=== PATIENT | female | born 1980 | race Two or more races ===

== ENCOUNTER 2017-03-11 16:09 | Emergency (ER) | payer MEDICAID ==
[~2017-03-11] VITALS: Ht 157.5 cm; Wt 81.6 kg
[2017-03-11 17:21] LABS: Basophils # (auto) 0 uL; Basophils % (auto) 0.5 % (0.0-2.0); DEFINITIVE VIEW TRANSMISSION; Eosinophils # (auto) 0.2 uL; Eosinophils % (auto) 3.1 % (0.0-7.0); Hematocrit 32.8 % (36.0-46.0); Hemoglobin 10.9 g/dL (12.2-16.2); Lymphocytes # (auto) 1.8 uL; Mean Corpuscular Hemoglobin 26.4 pg (28.0-32.0); Mean Corpuscular Hgb Conc. 33.4 g/dL (32.0-36.0); Mean Corpuscular Volume 79.1 fL (80.0-100.0); Mean Platelet Volume 8.8 fL (7.4-10.4); Monocytes # (auto) 0.6 uL; Monocytes % (auto) 7.9 % (0.0-12.0); Neutrophils % (auto) 65.5 % (37.0-80.0); Platelet Count (auto) 313 10^3/uL (140-450); Red Cell Distribution Width 14.9 % (11.6-16.0); White Blood Cell 7.7 10^3/uL (4.4-10.8)
[2017-03-11 17:40] LABS: Urine Bilirubin Negative (Negative); Urine Blood 2+ /uL (Negative); Urine Color Yellow (Yellow); Urine Glucose Normal (Normal); Urine Ketone Negative (Negative); Urine Mucus FEW (None Seen); Urine Nitrite Negative (Negative); Urine RBC 204 /hpf (0 - 4); Urine Squamous Epithelial Cell FEW /hpf (<5); Urine Urobilinogen Normal (Negative)
[2017-03-11 17:54] LABS: Albumin 3.5 g/dL (3.4-5.0); BUN/Creatinine Ratio 20.5; Bilirubin, Total 0.3 mg/dL (0.2-1.0); Calcium 8.4 mg/dL (8.5-10.1); Potassium 3.9 mmol/L (3.5-5.1)
[2017-03-11 18:45] VITALS: BP 103/73
== END 2017-03-11 20:35 | disposition home or self-care (01) ==
LOC: ER 16:09
DX: O20.8 Other hemorrhage in early pregnancy (principal); Z3A.01 Less than 8 weeks gestation of pregnancy
CPT/HCPCS: 36415; 76801; 80053; 81001; 84702; 85025; 86901

== ENCOUNTER 2018-05-07 21:15 | Emergency (ER) | payer MEDICAID ==
[~2018-05-07] VITALS: Ht 157.5 cm; Wt 85.7 kg
[2018-05-07 21:59] LABS: Basophils # (auto) 0.1 uL; Basophils % (auto) 0.5 % (0.0-2.0); Hemoglobin 8.3 g/dL (12.2-16.2); Lymphocytes # (auto) 1.7 uL
[2018-05-07 22:01] LABS: Eosinophils # (auto) 0.2 uL; Eosinophils % (auto) 2.2 % (0.0-7.0); Hematocrit 25.1 % (36.0-46.0); Lymphocytes % (auto) 15.7 % (10.0-50.0); Mean Corpuscular Hemoglobin 25.7 pg (28.0-32.0); Mean Corpuscular Hgb Conc. 33.1 g/dL (32.0-36.0); Mean Corpuscular Volume 77.7 fL (80.0-100.0); Monocytes # (auto) 0.8 uL; Monocytes % (auto) 7.2 % (0.0-12.0); Neutrophils # (auto) 8.3 uL; Neutrophils % (auto) 74.4 % (37.0-80.0); Platelet Count (auto) 223 10^3/uL (140-450); Red Blood Cells 3.23 10^6/uL (4.0-5.20); White Blood Cell 11.1 10^3/uL (4.4-10.8)
[2018-05-07 22:07] LABS: Red Cell Distribution Width 20.2 % (11.8-14.3)
[2018-05-08] MEDS ORDERED: SODIUM CHLORIDE 0.9% 1,000 ML IV ONE (07:00)
[2018-05-08 07:31] VITALS: BP 94/63
[2018-05-08 09:02] LABS: Urine Bacteria NONE SEEN /hpf (None Seen); Urine Blood 3+ /uL (Negative); Urine Specific Gravity 1.012 (1.001-1.035); Urine WBC 419 /hpf (0 - 5); Urine WBC Clumps PRESENT /hpf (None Seen)
== END 2018-05-08 09:01 | disposition home or self-care (01) ==
LOC: ER 21:15
DX: O46.91 Antepartum hemorrhage, unspecified, first trimester (principal); O23.41 Unspecified infection of urinary tract in pregnancy, first trimester; Z3A.01 Less than 8 weeks gestation of pregnancy
CPT/HCPCS: 36415; 76801; 76817; 81001; 81002; 84702; 85025; 88305; 99285; J7030

== ENCOUNTER 2020-04-01 14:56 | Emergency (ER) | payer MEDICAID ==
[~2020-04-01] VITALS: Ht 157.5 cm; Wt 90.7 kg
[2020-04-01 15:39] LABS: Basophils # (auto) 0.1 10 ^3/uL (0-0.2); Lymphocytes # (auto) 1.3 10 ^3/uL (0.4-5.4); Monocytes # (auto) 0.4 10 ^3/uL (0-1.3)
[2020-04-01 15:40] LABS: Basophils % (auto) 1.1 % (0.0-2.0); Eosinophils # (auto) 0.2 10 ^3/uL (0-0.8); Eosinophils % (auto) 3.5 % (0.0-7.0); Hematocrit 35.2 % (36.0-46.0); Hemoglobin 10.9 g/dL (12.2-16.2); Lymphocytes % (auto) 26.5 % (10.0-50.0); Mean Corpuscular Hemoglobin 23.6 pg (28.0-32.0); Mean Corpuscular Volume 76.2 fL (80.0-100.0); Monocytes % (auto) 8.3 % (0.0-12.0); Neutrophils % (auto) 60.6 % (37.0-80.0); Platelet Count (auto) 318 10^3/uL (140-450); Red Blood Cells 4.63 10^6/uL (4.0-5.20); Red Cell Distribution Width 18.1 % (11.8-14.3); White Blood Cell 4.9 10^3/uL (4.4-10.8)
[2020-04-01 15:52] LABS: Albumin 3.8 g/dL (3.4-5.0); Anion Gap 5 (5-15); Blood Urea Nitrogen 12 mg/dL (7-18); Carbon Dioxide 25 mmol/L (21-32); Chloride 108 mmol/L (98-107); Glucose 113 mg/dL (74-106); Potassium 4.1 mmol/L (3.5-5.1); Sodium 138 mmol/L (136-145)
[2020-04-01 15:58] LABS: Alanine Aminotransferase 26 U/L (13-56); Alkaline Phosphatase 43 U/L (45-117); Aspartate Aminotransferase 12 U/L (15-37); BUN/Creatinine Ratio 15.8; Bilirubin, Total 0.3 mg/dL (0.2-1.0); GFR African American 110 mL/min; GFR Non-African American 91 mL/min; Total Protein 7.1 g/dL (6.4-8.2)
[2020-04-01 17:00] VITALS: BP 110/68
== END 2020-04-01 17:01 | disposition home or self-care (01) ==
LOC: ER 14:56
DX: D50.9 Iron deficiency anemia, unspecified (principal); R00.2 Palpitations
CPT/HCPCS: 36415; 80053; 84484; 85025; 93005

== ENCOUNTER 2020-08-19 22:27 | Emergency (ER) | payer MEDICAID ==
[~2020-08-19] VITALS: Ht 162.6 cm; Wt 93.0 kg
[2020-08-19 23:54] VITALS: BP 112/63
== END 2020-08-20 00:32 | disposition home or self-care (01) ==
LOC: ER 22:31
DX: S09.90XA Unspecified injury of head, initial encounter (principal); S06.0X0A Concussion without loss of consciousness, initial encounter; X58.XXXA Exposure to other specified factors, initial encounter; Y93.89 Activity, other specified; Y92.89 Other specified places as the place of occurrence of the external cause; Y99.8 Other external cause status
CPT/HCPCS: 70450

== ENCOUNTER → 2021-07-26 12:55 | Emergency (ER) | payer MEDICAID ==
[~2021-07-26] VITALS: Ht 157.5 cm; Wt 88.5 kg
[2021-07-26 13:37] LABS: Urine Bacteria NONE SEEN /hpf (None Seen); Urine Blood 3+ /uL (Negative); Urine Mucus MANY (None Seen); Urine Specific Gravity 1.029 (1.001-1.035); Urine WBC 118 /hpf (0 - 5)
[2021-07-26 13:54] LABS: Eosinophils # (auto) 0.1 10 ^3/uL (0-0.8); Hematocrit 31.9 % (36.0-46.0); Hemoglobin 9.7 g/dL (12.2-16.2); Lymphocytes % (auto) 13.9 % (10.0-50.0); Monocytes # (auto) 0.5 10 ^3/uL (0-1.3); Monocytes % (auto) 7.4 % (0.0-12.0); Neutrophils # (auto) 5.6 10 ^3/uL (1.6-8.6)
[2021-07-26 13:56] LABS: Basophils # (auto) 0 10 ^3/uL (0-0.2); Basophils % (auto) 0.7 % (0.0-2.0); Eosinophils % (auto) 1.2 % (0.0-7.0); Mean Corpuscular Hgb Conc. 30.5 g/dL (32.0-36.0); Mean Corpuscular Volume 68.8 fL (80.0-100.0); Neutrophils % (auto) 76.8 % (37.0-80.0); Red Blood Cells 4.63 10^6/uL (4.0-5.20); White Blood Cell 7.2 10^3/uL (4.4-10.8)
[2021-07-26 14:15] LABS: Albumin 3.7 g/dL (3.4-5.0); Calcium 8.9 mg/dL (8.5-10.1)
[2021-07-26 14:20] LABS: BUN/Creatinine Ratio 16.3; Bilirubin, Total 0.3 mg/dL (0.2-1.0); Total Protein 7.5 g/dL (6.4-8.2)
[2021-07-26 21:26] VITALS: BP 130/67
== END | disposition home or self-care (01) ==
LOC: ER 12:55
DX: N93.9 Abnormal uterine and vaginal bleeding, unspecified (principal); N39.0 Urinary tract infection, site not specified; Z86.2 Personal history of diseases of the blood and blood-forming organs and certain disorders involving the immune mechanism
CPT/HCPCS: 36415; 80053; 81001; 84702; 85025

== ENCOUNTER 2023-01-25 15:58 | Emergency (ER) | payer MEDICAID ==
[~2023-01-25] VITALS: Ht 157.5 cm; Wt 98.4 kg
[2023-01-25 16:23] LABS: Eosinophils # (auto) 0.2 10 ^3/uL (0-0.8); Monocytes # (auto) 0.5 10 ^3/uL (0-1.3); Monocytes % (auto) 7.9 % (0.0-12.0); Neutrophils # (auto) 3.3 10 ^3/uL (1.6-8.6)
[2023-01-25 16:24] LABS: Basophils # (auto) 0.1 10 ^3/uL (0-0.2); Basophils % (auto) 0.8 % (0.0-2.0); Eosinophils % (auto) 3.8 % (0.0-7.0); Hemoglobin 11.3 g/dL (12.2-16.2); Lymphocytes # (auto) 2.1 10 ^3/uL (0.4-5.4); Lymphocytes % (auto) 34.5 % (10.0-50.0); Mean Corpuscular Hemoglobin 23.7 pg (28.0-32.0); Mean Corpuscular Hgb Conc. 31.4 g/dL (32.0-36.0); Mean Corpuscular Volume 75.4 fL (80.0-100.0); Nucleated Red Blood Cells % 0.2 %; Red Blood Cells 4.78 10^6/uL (4.0-5.20); Red Cell Distribution Width 17.8 % (11.8-14.3); White Blood Cell 6.2 10^3/uL (4.4-10.8)
[2023-01-25 16:42] LABS: Albumin 3.4 g/dL (3.4-5.0); Calcium 8.8 mg/dL (8.5-10.1)
[2023-01-25 16:45] LABS: BUN/Creatinine Ratio 19.7; Bilirubin, Total 0.2 mg/dL (0.2-1.0)
[2023-01-25 17:04] LABS: Urine Bacteria NONE SEEN /hpf (None Seen); Urine Blood 3+ /uL (Negative); Urine Mucus FEW (None Seen); Urine Specific Gravity 1.024 (1.001-1.035); Urine WBC 1 /hpf (0 - 5)
[2023-01-25] MEDS ORDERED: PENICILLIN G BENZ 1200000 UNITS/2 ML SYRG IM ONE (20:30)
[2023-01-25] MEDS ORDERED: ALBUTEROL SULF 2.5 MG/0.5ML(0.5%) NEB SOLN NEB ONE (20:30)
[2023-01-25] MEDS ORDERED: IPRATROPIUM BROM 0.5 MG/2.5ML INH SOL NEB ONE (20:30)
[2023-01-25] MEDS ORDERED: DexAMETHasone SOD PHOS 10MG/1ML VIAL INJ IM ONE (20:30)
[2023-01-25 21:36] VITALS: BP 137/70
== END 2023-01-25 21:38 | disposition home or self-care (01) ==
LOC: ER 15:58
DX: R07.89 Other chest pain (principal); J02.9 Acute pharyngitis, unspecified; R09.1 Pleurisy; Z32.02 Encounter for pregnancy test, result negative
CPT/HCPCS: 36415; 71045; 80053; 81001; 81025; 84484; 85025; 87880; 93005; 94640; 96372; 99285; J0561; J1100; J7644